=== PATIENT | male | born 1960 | race Caucasian/White ===

== ENCOUNTER 2021-10-21 17:10 | Inpatient (IN) | payer OTHER ==
[~2021-10-21] VITALS: Ht 180.3 cm; Wt 108.9 kg
[~2021-10-21 17:10] MED LIST: ALBU18HF2 IH; ASPI-1169 PO; ATOR10TA PO; CLOP75TA15 PO; FURO20TA4 PO; LISI-768 PO; METF-440 PO; METO50TA16 PO; MEXI200C PO; TIOT18CA3 IH
--- NOTE | 2021-10-21 17:13 | NUR ---
SEEN AND EXAMINED BY .
--- NOTE | 2021-10-21 17:20 | NUR ---
BLOOD DRAWN AND SENT TO LAB.
--- NOTE | 2021-10-21 17:41 | NUR ---
MOVE SHEET SUBMITTED AND CALLED FOR BED.
[2021-10-21 17:44] LABS: BASOPHILS # (AUTO) 0.1 K/uL (0.0-0.2); BASOPHILS % (AUTO) 0.6 % (0.0-2.0); EOSINOPHILS % (AUTO) 1.8 % (0.0-6.0); HEMATOCRIT 58 % (39-51); LYMPHOCYTES # (AUTO) 1.8 K/uL (0.8-4.8); LYMPHOCYTES % (AUTO) 11.2 % (20.0-44.0); MEAN CORPUSCULAR HGB CONC 33 g/dl (31.0-36.0); MEAN CORPUSCULAR VOLUME 87 fL (80-96); MONOCYTES # (AUTO) 0.9 K/uL (0.1-1.30); MONOCYTES % (AUTO) 5.9 % (2.0-12.0); NEUTROPHILS # (AUTO) 12.7 K/uL (1.8-8.9); NEUTROPHILS % (AUTO) 80.5 % (43.0-81.0); PLATELET COUNT (AUTO) 297 K/uL (150-450); RED BLOOD CELL COUNT(AUTO) 6.62 MIL/uL (4.5-6.0); WHITE BLOOD COUNT (AUTO) 15.8 K/uL (4.3-11.0)
[2021-10-21] MEDS ORDERED: CARV6.252 PO (17:47)
[2021-10-21] MEDS ORDERED: APIX5TAB PO (17:47)
[2021-10-21] MEDS ORDERED: ISOS60TA72 PO (17:47)
[2021-10-21] MEDS ORDERED: GLIM2TAB31 PO (17:47)
[2021-10-21] MEDS ORDERED: GABA-532 PO (17:47)
[2021-10-21] MEDS ORDERED: NITR0.4T48 SL (17:47)
[2021-10-21] MEDS ORDERED: ASPI-1420 PO (17:47)
[2021-10-21] MEDS ORDERED: AMIO400T5 PO (17:47)
[2021-10-21] MEDS ORDERED: LOSA50TA39 PO (17:47)
[2021-10-21] MEDS ORDERED: SPIR25TA6 PO (17:52)
[2021-10-21] MEDS ORDERED: ALBU1.257 IH (17:52)
[2021-10-21] MEDS ORDERED: POTA10TA10 PO (17:52)
[2021-10-21 17:53] LABS: HEMOGLOBIN 19.2 g/dL (13.5-17.5)
[2021-10-21] MEDS ORDERED: PIOG15TA8 PO (17:54)
[2021-10-21 17:55] LABS: CALCIUM, SERUM 8.8 mg/dL (8.5-10.1); CREATININE 1.5 mg/dL (0.6-1.3); POTASSIUM 3.8 mmol/L (3.5-5.1)
[2021-10-21 18:09] LABS: ALBUMIN 3.4 g/dL (3.4-5.0); BILIRUBIN,DIRECT 0.3 mg/dL (0.0-0.2); BILIRUBIN,TOTAL 0.9 mg/dL (0.2-1.0); TOTAL PROTEIN, SERUM 7.8 g/dL (6.4-8.2)
[2021-10-21 18:13] LABS: BAND % (MANUAL) 1 % (0.0-5.0); EOSINOPHILS % (MANUAL) 1 % (0-4); LYMPHOCYTES % (MANUAL) 8 % (16-48); MONOCYTES % (MANUAL) 4 % (0-11.0); NEUTROPHILS % (MANUAL) 86 (42-76)
[2021-10-21] MEDS ORDERED: IV NS 0.9% 1,000 ML BAG IV ONE (18:30)
[2021-10-21] MEDS ORDERED: MORPHINE SULFATE INJ 2 MG/ML DISP.SYRIN ONE (18:44)
[2021-10-21] MEDS ORDERED: ONDANSETRON HCL/PF 4 MG/2 ML VIAL ONE (18:46)
[2021-10-21] MEDS ORDERED: ONDANSETRON HCL/PF - ER 4 MG/2 ML VIAL IV ONE (19:00)
[2021-10-21] MEDS ORDERED: MORPHINE SULFATE INJ 2 MG/ML DISP.SYRIN IV ONE (19:00)
[2021-10-21] MEDS ORDERED: AMIODARONE HCL 200 MG TABLET PO SCH (19:00)
[2021-10-21] MEDS ORDERED: GABAPENTIN 300 MG CAPSULE PO SCH (19:45)
[2021-10-21] MEDS ORDERED: GABAPENTIN 300 MG CAPSULE ONE (19:46)
[2021-10-21] MEDS ORDERED: AMIODARONE HCL 200 MG TABLET ONE ×2 (19:59)
--- NOTE | 2021-10-21 20:18 | NUR ---
CALLED HOUSE SUP FOR TELE BED
[2021-10-21] MEDS ORDERED: MORPHINE SULFATE INJ 2 MG/ML DISP.SYRIN IV PRN (20:30)
[2021-10-21] MEDS ORDERED: MAG HYDROX/AL HYDROX/SIMETH 30 ML UDC PO PRN (20:30)
[2021-10-21] MEDS ORDERED: ACETAMINOPHEN 325 MG TABLET PO PRN (20:30)
[2021-10-21] MEDS ORDERED: NITROGLYCERIN 0.4 MG/TAB BOTTLE SL PRN (20:30)
[2021-10-21] MEDS ORDERED: ONDANSETRON HCL/PF 4 MG/2 ML VIAL IVP PRN (20:30)
[2021-10-21] MEDS ORDERED: DOCUSATE SODIUM 100 MG CAPSULE PO PRN (20:30)
--- NOTE | 2021-10-21 20:45 | NUR ---
GOT BED 326-2
--- NOTE | 2021-10-21 20:54 | NUR ---
REPORT GIVEN TO EDGARDO BARDALES FOR KAYLEE.
[2021-10-21 21:05] VITALS: BP 115/56
--- NOTE | 2021-10-21 21:05 | NUR ---
RN NOTES RECEIVED PATIENT FORM ER WITH DX. OF CHEST PAIN, A/OX3 , NOTICED PATIENT WILL ANSWER UNRELATED TO MY QUESTIONS, SR ON TELE MONITOR HR-85, ADMISSION INSTRUCTIONS WAS RENDERED, SKIN ASSESSMENT DONE, CALL LIGHT WITHIN REACH, [id number], WILL CONTINUE TO MONITOR
--- NOTE | 2021-10-21 22:49 | NUR ---
RN NOTES COMPLAINED OF ABDOMINAL PAIN- MORPHINE 1 MG IV GIVEN ORDERED, V/S STABLE
--- NOTE | 2021-10-22 01:00 | NUR ---
RN NOTES PATIENT LEFT AMA BECAUSE HE WANTS TO SEE MD AT THIS TIME AND WAS ASKING FOR LASIX FOR HIS ABDOMEN.. EXPLAINED TO THE PATIENT THAT MD ALREADY SAW HIM IN ER AND EVEN DR. CIFUENTES SAW HIM WELL. PATIENT STARTED TO CURSE ME , SECURITY CALLED. PER APRYL [place]-SKIP CIFUENTES HELD HIS DIURETIC AND HE HAS HISTORY OF NONCOMPLIANCE. PATIENT SIGNED AMA
[2021-10-22 01:55] LABS: C-REACTIVE PROTEIN 1.4 mg/dL (0.0-0.9)
[2021-10-22] MEDS ORDERED: ASPIRIN EC 81 MG TABLET.DR PO SCH (09:00)
[2021-10-22] MEDS ORDERED: ASPIRIN 81 MG TAB.CHEW PO SCH (09:00)
[2021-10-22] MEDS ORDERED: APIXABAN 5 MG TABLET PO SCH (09:00)
[2021-10-22] MEDS ORDERED: ATORVASTATIN 40 MG TABLET PO SCH (22:00)
== END 2021-10-22 01:00 | disposition left against medical advice (07) | DRG 201 ==
LOC: ER 17:13 → UNDOADMIN 20:28 → TELE 20:28
PROVIDERS: ADMIT Internal Medicine; ATTEND Registered Nurse
DX: I47.2 Ventricular tachycardia (principal); I21.A1 Myocardial infarction type 2; N17.9 Acute kidney failure, unspecified; E66.8 Other obesity; E11.9 Type 2 diabetes mellitus without complications; D72.829 Elevated white blood cell count, unspecified; I10 Essential (primary) hypertension; I48.91 Unspecified atrial fibrillation; I95.2 Hypotension due to drugs; Z95.810 Presence of automatic (implantable) cardiac defibrillator; Z68.34 Body mass index [BMI] 34.0-34.9, adult; M54.50 Low back pain, unspecified; Z91.19 Patient's noncompliance with other medical treatment and regimen; Z95.5 Presence of coronary angioplasty implant and graft; G89.4 Chronic pain syndrome; G47.33 Obstructive sleep apnea (adult) (pediatric); F32.9 Major depressive disorder, single episode, unspecified; F17.210 Nicotine dependence, cigarettes, uncomplicated; Z20.822 Contact with and (suspected) exposure to COVID-19
CPT/HCPCS: 36415; 71045-TC; 80048-TC; 80076-TC; 82550-TC; 82728-TC; 83615-TC; 83735-TC; 83880; 84484-TC; 85025-TC; 85378-TC; 86140-TC; 87081-TC; 93307-TC; C9803; G0378; J2270; J2405; J7040